=== PATIENT | male | born 1990 | race Caucasian/White ===

== ENCOUNTER 2019-12-19 19:35 | Inpatient (IN) | payer OTHER ==
[2019-12-19] MEDS ORDERED: SODIUM CHLORIDE 0.9% 2,000 ML IV ONE (19:55)
[2019-12-19 20:48] LABS: Basophils # (A) 0.1 k/uL (0-0.2); Basophils % (A) 2 %; Eosinophils # (A) 0.2 k/uL (0-0.7); Eosinophils % (A) 4 %; HCT 50.2 % (39.0-53.0); HGB 17.1 gm/dL (13.0-17.5); Lymphocytes % (A) 40 %; MCV 91.4 fL (80.0-100.0); Mean Platelet Volume 7.9; Monocytes # (A) 0.3 k/uL (0-1.0); Monocytes % (A) 6 %; Neutrophils # (A) 2.3 k/uL (1.3-7.7); Neutrophils % (A) 46 %; Platelet Count 164 k/uL (150-450); RDW 13.2 % (11.5-15.5)
--- NOTE | 2019-12-19 20:51 | ED ---
Psych HPI <ArslanjordonIzaiah B - Last Filed: 12/19/19 21:34> - General Source: patient Mode of arrival: wheelchair <Marissa Henning - Last Filed: 12/23/19 13:31> - General Chief Complaint: Psychiatric Symptoms Stated Complaint: Mental Health Time Seen by Provider: 12/19/19 19:35 - History of Present Illness Initial Comments: Patient is a 29 no male with past history of hypertension, alcohol abuse and depression presents to the emergency department with reported alcohol intoxication and suicidal thoughts. Girlfriend is at bedside. States the patient has stopped eating, showering and taking his medications. He has been significantly depressed and drinking every day. He has made multiple comments about harming himself which the patient does admit to. He was punching himself in the head on the way to the emergency department. Upon arrival here he states he has not attempted anything in order to harm himself however he does have plans to take all of his clonidine for walk out into traffic. Patient has a history of depression and sees a psychiatrist. Has been hospitalized multiple times for mental health. Patient admits to history of seizures however has not had any seizures recently secondary to alcohol withdrawal. Remainder of HPI is limited because the patient's significant intoxicated state (Marissa Henning) - Related Data Home Medications Medication Instructions Recorded Confirmed Albuterol Inhaler [Ventolin Hfa 2 puff INHALATION RT-Q4H PRN 12/19/19 12/19/19 Inhaler] Ipratropium/Albuter 20-100Mcg 1 puff INHALATION RT-BID PRN 12/19/19 12/19/19 [Combivent Respimat 20-100Mcg Inhaler] Multivitamins, Thera [Multivitamin 1 tab PO DAILY 12/19/19 12/19/19 (formulary)] Nicotine 21Mg/24Hr Patch [Habitrol] 1 patch TRANSDERM DAILY PRN 12/19/19 12/19/19 cloNIDine HCL [Catapres] 0.2 mg PO TID 12/19/19 12/19/19 Previous Rx's Medication Instructions Recorded diazePAM [Valium] 5 mg PO BID 2 Days tab 12/21/19 lamoTRIgine [LaMICtal] 25 mg PO BID tab 12/21/19 traZODone HCL [Desyrel] 50 mg PO HS PRN tab 12/21/19 Allergies Allergy/AdvReac Type Severity Reaction Status Date / Time No Known Allergies Allergy Verified 12/19/19 20:55 Review of Systems ROS Other: All systems not noted in ROS Statement are negative. <Izaiah Gottlieb - Last Filed: 12/19/19 21:34> ROS Other: All systems not noted in ROS Statement are negative. <Marissa Henning - Last Filed: 12/23/19 13:31> ROS Statement: Those systems with pertinent positive or pertinent negative responses have been documented in the HPI. Past Medical History Past Medical History: Asthma History of Any Multi-Drug Resistant Organisms: None Reported Past Surgical History: No Surgical Hx Reported, Hernia Repair Past Psychological History: Anxiety, Depression Smoking Status: Current every day smoker Past Alcohol Use History: Daily Past Drug Use History: Marijuana <Marissa Henning - Last Filed: 12/23/19 13:31> General Exam General appearance: alert, in no apparent distress, appears intoxicated Head exam: Present: atraumatic, normocephalic, normal inspection Eye exam: Present: normal appearance, PERRL, EOMI. Absent: scleral icterus, conjunctival injection, periorbital swelling ENT exam: Present: normal exam, mucous membranes moist Neck exam: Present: normal inspection. Absent: tenderness, meningismus, lymphadenopathy Respiratory exam: Present: normal lung sounds bilaterally. Absent: respiratory distress, wheezes, rales, rhonchi, stridor Cardiovascular Exam: Present: regular rate, normal rhythm, normal heart sounds. Absent: systolic murmur, diastolic murmur, rubs, gallop, clicks GI/Abdominal exam: Present: soft, normal bowel sounds. Absent: distended, tenderness, guarding, rebound, rigid Extremities exam: Present: normal inspection, full ROM, normal capillary refill. Absent: tenderness, pedal edema, joint swelling, calf tenderness Back exam: Present: normal inspection Neurological exam: Present: alert, oriented X3, CN II-XII intact Psychiatric exam: Present: normal affect, normal mood Skin exam: Present: warm, dry, intact, normal color. Absent: rash <Izaiah Gottlieb - Last Filed: 12/19/19 21:34> Limitations: no limitations General appearance: alert, appears intoxicated Head exam: Present: atraumatic, normocephalic Eye exam: Present: conjunctival injection ENT exam: Present: normal exam, mucous membranes moist Respiratory exam: Present: normal lung sounds bilaterally. Absent: respiratory distress, wheezes, rales, rhonchi, stridor Cardiovascular Exam: Present: normal rhythm, tachycardia, normal heart sounds. Absent: systolic murmur, diastolic murmur, rubs, gallop, clicks GI/Abdominal exam: Present: soft, normal bowel sounds. Absent: distended, tenderness, guarding, rebound, rigid Neurological exam: Present: altered Psychiatric exam: Present: depressed, suicidal ideation Skin exam: Present: warm, dry, intact, normal color. Absent: rash <Marissa Henning - Last Filed: 12/23/19 13:31> Course <Izaiah Gottlieb - Last Filed: 12/19/19 21:34> Vital Signs 12/19/19 19:37 Temperature 98.3 F Pulse Rate 111 H Respiratory 20 Rate Blood Pressure 134/96 O2 Sat by Pulse 96 Oximetry - Reevaluation(s) Reevaluation #1: 12/19/19 21:34 Medical records reviewed (Izaiah Gottlieb) - Consultations Consultation #1: Spoke with sound agreeable to admit patient (Izaiah Gottlieb) Medical Decision Making - Lab Data Result diagrams: 12/19/19 20:36 12/19/19 20:36 <Izaiah Gottlieb - Last Filed: 12/19/19 21:34> - Lab Data Result diagrams: 12/20/19 08:26 12/19/19 20:36 <Marissa Henning - Last Filed: 12/23/19 13:31> - Medical Decision Making 29 male for evaluation of psychiatric illness petition for psychiatric evaluation alcohol 387 significant alcohol toxicity, will admit for sobering and psychiatric evaluation (Izaiah Gottlieb) Upon arrival patient is placed into room 14. Breathalyzer demonstrates the patient's alcohol level is 306. Peripheral IV is established. Patient given a liter bolus of normal saline. Laboratory studies are conducted. Patient will be signed out to Dr. Gottlieb (Marissa Henning) - Lab Data Lab Results 12/19/19 12/19/19 12/19/19 Range/Units 20:36 20:36 20:36 WBC 5.0 (3.8-10.6) k/uL RBC 5.50 (4.30-5.90) m/uL Hgb 17.1 (13.0-17.5) gm/dL Hct 50.2 (39.0-53.0) % MCV 91.4 (80.0-100.0) fL MCH 31.0 (25.0-35.0) pg MCHC 34.0 (31.0-37.0) g/dL RDW 13.2 (11.5-15.5) % Plt Count 164 (150-450) k/uL Neutrophils % 46 % Lymphocytes % 40 % Monocytes % 6 % Eosinophils % 4 % Basophils % 2 % Neutrophils # 2.3 (1.3-7.7) k/uL Lymphocytes # 2.0 (1.0-4.8) k/uL Monocytes # 0.3 (0-1.0) k/uL Eosinophils # 0.2 (0-0.7) k/uL Basophils # 0.1 (0-0.2) k/uL Sodium 139 (137-145) mmol/L Potassium 5.0 (3.5-5.1) mmol/L Chloride 106 (98-107) mmol/L Carbon Dioxide 22 (22-30) mmol/L Anion Gap 11 mmol/L BUN 15 (9-20) mg/dL Creatinine 0.68 (0.66-1.25) mg/dL Est GFR (CKD-EPI)AfAm >90 (>60 ml/min/1.73 sqM) Est GFR (CKD-EPI)NonAf >90 (>60 ml/min/1.73 sqM) Glucose 109 H (74-99) mg/dL Calcium 9.3 (8.4-10.2) mg/dL Urine Color Light Yellow Urine Appearance Clear (Clear) Urine pH 5.5 (5.0-8.0) Ur Specific [place] 1.010 (1.001-1.035) Urine Protein Negative (Negative) Urine Glucose (UA) Negative (Negative) Urine Ketones Negative (Negative) Urine Blood Negative (Negative) Urine Nitrite Negative (Negative) Urine Bilirubin Negative (Negative) Urine Urobilinogen <2.0 (<2.0) mg/dL Ur Leukocyte Esterase Negative (Negative) Urine Opiates Screen Not Detected (NotDetected) Ur Oxycodone Screen Not Detected (NotDetected) Urine Methadone Screen Not Detected (NotDetected) Ur Propoxyphene Screen Not Detected (NotDetected) Ur Barbiturates Screen Not Detected (NotDetected) U Tricyclic Antidepress Not Detected (NotDetected) Ur Phencyclidine Scrn Not Detected (NotDetected) Ur Amphetamines Screen Not Detected (NotDetected) U Methamphetamines Scrn Not Detected (NotDetected) U Benzodiazepines Scrn Detected H (NotDetected) Urine Cocaine Screen Not Detected (NotDetected) U Marijuana (THC) Screen Detected H (NotDetected) Serum Alcohol 387 H* mg/dL 12/20/19 Range/Units 08:26 WBC 4.8 (3.8-10.6) k/uL RBC 5.00 (4.30-5.90) m/uL Hgb 15.3 (13.0-17.5) gm/dL Hct 46.2 (39.0-53.0) % MCV 92.4 (80.0-100.0) fL MCH 30.6 (25.0-35.0) pg MCHC 33.1 (31.0-37.0) g/dL RDW 13.4 (11.5-15.5) % Plt Count 241 (150-450) k/uL Neutrophils % 55 % Lymphocytes % 33 % Monocytes % 4 % Eosinophils % 5 % Basophils % 1 % Neutrophils # 2.6 (1.3-7.7) k/uL Lymphocytes # 1.6 (1.0-4.8) k/uL Monocytes # 0.2 (0-1.0) k/uL Eosinophils # 0.3 (0-0.7) k/uL Basophils # 0.1 (0-0.2) k/uL Sodium (137-145) mmol/L Potassium (3.5-5.1) mmol/L Chloride (98-107) mmol/L Carbon Dioxide (22-30) mmol/L Anion Gap mmol/L BUN (9-20) mg/dL Creatinine (0.66-1.25) mg/dL Est GFR (CKD-EPI)AfAm (>60 ml/min/1.73 sqM) Est GFR (CKD-EPI)NonAf (>60 ml/min/1.73 sqM) Glucose (74-99) mg/dL Calcium (8.4-10.2) mg/dL Urine Color Urine Appearance (Clear) Urine pH (5.0-8.0) Ur Specific [place] (1.001-1.035) Urine Protein (Negative) Urine Glucose (UA) (Negative) Urine Ketones (Negative) Urine Blood (Negative) Urine Nitrite (Negative) Urine Bilirubin (Negative) Urine Urobilinogen (<2.0) mg/dL Ur Leukocyte Esterase (Negative) Urine Opiates Screen (NotDetected) Ur Oxycodone Screen (NotDetected) Urine Methadone Screen (NotDetected) Ur Propoxyphene Screen (NotDetected) Ur Barbiturates Screen (NotDetected) U Tricyclic Antidepress (NotDetected) Ur Phencyclidine Scrn (NotDetected) Ur Amphetamines Screen (NotDetected) U Methamphetamines Scrn (NotDetected) U Benzodiazepines Scrn (NotDetected) Urine Cocaine Screen (NotDetected) U Marijuana (THC) Screen (NotDetected) Serum Alcohol mg/dL Disposition Is patient prescribed a controlled substance at d/c from ED?: No <Izaiah Gottlieb - Last Filed: 12/19/19 21:34> <Marissa Henning A - Last Filed: 12/23/19 13:31> Clinical Impression: Acute psychosis, Depression, Alcohol intoxication Disposition: ADMITTED IP TO THIS HOSP Condition: Fair
[2019-12-19 21:02] LABS: Sodium 139 mmol/L (137-145)
[2019-12-19 21:05] LABS: African American GFR (CKD) >90 (>60 ml/min/1.73 sqM); Anion Gap 11 mmol/L; Blood Urea Nitrogen 15 mg/dL (9-20); Calcium 9.3 mg/dL (8.4-10.2); Carbon Dioxide 22 mmol/L (22-30); Chloride 106 mmol/L (98-107); Glucose 109 mg/dL (74-99); Non-African American GFR(CKD) >90 (>60 ml/min/1.73 sqM)
[2019-12-19 21:22] LABS: Alcohol 387 mg/dL
[2019-12-19] MEDS ORDERED: THIAMINE 100 MG/ML 2 ML VIAL IM STA (21:32)
[2019-12-19] MEDS ORDERED: SODIUM CHLORIDE 0.9% 1,000 ML IV ONE (21:32)
[2019-12-19] MEDS ORDERED: LORazepam 2 MG/ML INJ IV PRN ×2 (21:32)
[2019-12-19 22:41] LABS: Appearance,Urine Clear (Clear); Bilirubin,Urine Negative (Negative); Blood,Urine Negative (Negative); Color,Urine Light Yellow; Glucose,Urine (UA) Negative (Negative); Ketones,Urine Negative (Negative); Leukocyte Esterase,Urine Negative (Negative); Nitrite,Urine Negative (Negative); PH, Urine 5.5 (5.0-8.0); Protein,Urine Negative (Negative); Urobilinogen,Urine <2.0 mg/dL (<2.0)
[2019-12-19 23:20] LABS: Amphetamine Screen,Urine Not Detected (NotDetected); Barbiturate Screen,Urine Not Detected (NotDetected); Benzodiazepines Screen,Urine Detected (NotDetected); Cocaine Screen,Urine Not Detected (NotDetected); Methadone Screen, Urine Not Detected (NotDetected); Opiate Screen,Urine Not Detected (NotDetected); Oxycodone Screen, Urine Not Detected (NotDetected); Phencyclidine Screen,Urine Not Detected (NotDetected); Tricyclic Antidepressant,Urine Not Detected (NotDetected); Urn Cannabinoid Scrn Detected (NotDetected)
[2019-12-20] MEDS: LORazepam 2 MG/ML INJ IV PRN ×9 (01:02→23:22)
--- NOTE | 2019-12-20 03:16 | P.HPIM ---
History of Present Illness H&P Date: 12/19/19 Chief Complaint: suicide ideation , alcohol intoxication 29-year-old male with hypertension Patient was brought in by family member due to acute alcohol intoxication, alcohol abuse, suicidal ideation. Patient girlfriend reported that he has not been taking care of himself not eating not drinking for hygiene status. He's been voicing suicidal ideation hoping to . He's been drinking so much he has history of alcohol abuse and alcohol withdrawal seizures. He has recently been [facility] but he checked himself out. Return to drinking Patient was sleeping at time of my interview he woke up and started crying he feels very depressed he complains about feeling very tired and intoxicated. He denies any chest pain fevers chills upper respiratory infection symptoms denies any shortness of breath. He reports that he had some vomiting episodes at home with some blood this is questionable though. Patient doesn't really making much sense during the interview and very unreliable historian Blood alcohol level was 387 otherwise blood work overall unremarkable Review of Systems ROS unobtainable: due to mental status Past Medical History Past Medical History: Asthma, Hypertension Additional Past Medical History / Comment(s): Alcohol withdrawals seizures History of Any Multi-Drug Resistant Organisms: None Reported Past Surgical History: No Surgical Hx Reported, Hernia Repair Past Anesthesia/Blood Transfusion Reactions: No Reported Reaction Past Psychological History: Anxiety, Depression Smoking Status: Current every day smoker Past Alcohol Use History: Daily, Heavy Additional Past Alcohol Use History / Comment(s): about a fifth and half of whiskey a day Past Drug Use History: Marijuana - Past Family History Family Family Medical History: Unable to Obtain Medications and Allergies Home Medications Medication Instructions Recorded Confirmed Type Albuterol Inhaler [Ventolin Hfa 2 puff INHALATION RT-Q4H PRN 12/19/19 12/19/19 History Inhaler] Ipratropium-Albuterol Nebulize 3 ml INHALATION RT-QID PRN 12/19/19 12/19/19 History [Duoneb 0.5 mg-3 mg/3 ml Soln] Ipratropium/Albuter 20-100Mcg 1 puff INHALATION RT-BID PRN 12/19/19 12/19/19 History [Combivent Respimat 20-100Mcg Inhaler] Multivitamins, Thera [Multivitamin 1 tab PO DAILY 12/19/19 12/19/19 History (formulary)] Nicotine 21Mg/24Hr Patch [Habitrol] 1 patch TRANSDERM DAILY PRN 12/19/19 12/19/19 History cloNIDine HCL [Catapres] 0.2 mg PO TID 12/19/19 12/19/19 History Allergies Allergy/AdvReac Type Severity Reaction Status Date / Time No Known Allergies Allergy Verified 12/19/19 20:55 Physical Exam Vitals: Vital Signs Temp Pulse Pulse Resp BP BP Pulse Ox 12/20/19 01:17 98.2 F 108 H 17 114/69 99 12/19/19 22:39 96.5 F L 99 18 138/94 99 12/19/19 19:37 98.3 F 111 H 20 134/96 96 Intake and Output 12/19/19 12/19/19 12/20/19 14:59 22:59 06:59 Intake Total 1000 Balance 1000 Intake: Amount of Fluid Infused ( 1000 ml) Other: Weight 104.326 kg Constitutional: Patient sleeping easily arousable, patient intoxicated and crying Eyes: Anicteric sclerae, moist conjunctiva, Pupils equal round reactive to light ENMT: NC/AT Oropharynx clear, no erythema, or exudates Neck: Supple, FROM, no masses, or JVD No carotid bruits No thyromegaly Lungs: Clear to auscultation Clear to percussion Normal respiratory effort, no accessory muscle use Cardiovascular: Heart regular in rate and rhythm, No murmurs, gallops, or rubs No peripheral edema Abdominal: Soft Nontender, no guarding, rebound or rigidity Abdomen moving with respiration Normoactive bowel sounds No hepatomegaly, No splenomegaly No palpable mass No abdominal wall hernia noted Skin: Normal temperature, tone, texture, turgor No induration No subcutaneous nodules No rash, lesions No ulcers Extremities: No digital cyanosis No clubbing Pedal pulses intact and symmetrical Radial pulses intact and symmetrical No calf tenderness Psychiatric: Patient intoxicated sleeping easily arousable oriented to person and place Depressed affect Poor judgement Neuro Muscles Strength 5/5 in all 4 extremities Sensation to light touch grossly present throughout Cranial nerves II-XII grossly intact No focal sensory deficits Lymphatics: no palpable cervical or supraclavicular , or inguinal lymph nodes Results CBC & Chem 7: 12/19/19 20:36 08/25/20 20:36 Labs: Abnormal Lab Results - Last 24 Hours (Table) 12/19/19 12/19/19 Range/Units 20:36 20:36 Glucose 109 H (74-99) mg/dL U Benzodiazepines Scrn Detected H (NotDetected) U Marijuana (THC) Screen Detected H (NotDetected) Serum Alcohol 387 H* mg/dL Thrombosis Risk Factor Assmnt - Choose All That Apply Any of the Below Risk Factors Present?: No Other Risk Factors: No Other congenital or acquired thrombophilia - If yes, enter type in comment: No Thrombosis Risk Factor Assessment Level: Very Low Risk Assessment and Plan Assessment: Acute severe alcohol intoxication with severe alcohol abuse Pending alcohol withdrawal syndrome History of alcohol withdrawal seizures Suicidal ideation and depression Plan IV fluid hydration Benzos per CIWA scale Thiamine Seizure precautions Bedside sitter Follow-up labs, monitor hemoglobin Psych eval PPI twice a day Hypertension Resume clonidine CODE STATUS: Full code DVT prophylaxis: Mechanical Discussed with: Patient, ER, RN Anticipated length of stay less than [address]: Pending clinical course A total of 75 minutes was spent on the care of this complex patient more than 50% of the time was spent in counseling and care coordination.
[2019-12-20] MEDS: THIAMINE 100 MG TAB PO SCH ×3 (04:11→16:55)
[2019-12-20] MEDS: IPRATROPIUM-ALBUTEROL 3 ML NEB INHALATION PRN ×4 (04:15→19:26)
[2019-12-20] MEDS: cloNIDine HCL 0.2 MG TAB PO SCH ×3 (08:31→21:38)
[2019-12-20] MEDS: PANTOPRAZOLE 40 MG TABLET PO SCH (08:31)
[2019-12-20] MEDS: HEPARIN SODIUM,PORCINE 5,000 UNIT/ML 1 ML VIAL SQ SCH ×2 (08:35→20:37)
[2019-12-20] MEDS: SODIUM CHLORIDE 0.9% 1,000 ML IV SCH ×2 (08:35→16:56)
[2019-12-20 09:03] LABS: Basophils # (A) 0.1 k/uL (0-0.2); Basophils % (A) 1 %; Eosinophils # (A) 0.3 k/uL (0-0.7); Eosinophils % (A) 5 %; HCT 46.2 % (39.0-53.0); HGB 15.3 gm/dL (13.0-17.5); Lymphocytes # (A) 1.6 k/uL (1.0-4.8); Lymphocytes % (A) 33 %; MCH 30.6 pg (25.0-35.0); MCHC 33.1 g/dL (31.0-37.0); MCV 92.4 fL (80.0-100.0); Mean Platelet Volume 6.8; Monocytes # (A) 0.2 k/uL (0-1.0); Monocytes % (A) 4 %; Neutrophils # (A) 2.6 k/uL (1.3-7.7); Neutrophils % (A) 55 %; Platelet Count 241 k/uL (150-450); RDW 13.4 % (11.5-15.5); WBC 4.8 k/uL (3.8-10.6)
[2019-12-20] MEDS: diazePAM 5 MG TAB PO SCH ×3 (12:27→21:38)
--- NOTE | 2019-12-20 13:18 | P.CN ---
Psychiatric Consult - . Consult date: 12/20/19 Consult:: 12/20/19 13:18 IDENTIFYING DATA: This patient is a 29-year-old male who currently lives with his brother or his and 2 daughters and is currently unemployed for the last 1 month. HISTORY OF PRESENT ILLNESS: The patient presented to the hospital with alcohol intoxication. Patient had made suicidal statements and was complaining of depression. According to patient's he had been being more depressed lately and stopped eating, showering and taking his medications. As per ER report patient admitted to be drinking daily and was also reported to be punching himself on the way to the emergency room. Patient also mentioned a plan about overdosing and walking into traffic. Patient's blood alcohol level was 387 on admission. Psychiatry was consulted for suicidal ideations. Patient was seen at the bedside with his sitter who was agreeable to speak to personal lines underwriter. Patient appeared to have poor hygiene and grooming and was attempting to cooperate with personal lines underwriter. Patient appeared to be depressed and his affect and states that he has been struggling with depression and suicidal thoughts however currently has no plan. He states that he recently moved locally from [facility] and states that the past 1.5 months now he has not been dealing with it well. He states that he's been trying to stop drinking alcohol however has been drinking approximately a fifth of whiskey a day. She states that he has been drinking heavily for approximately 5 years now however has been struggling with his alcohol use for 10 years. He denied any DUIs or any legal problems related to alcohol. He currently is complaining of withdrawal symptoms including paresthesias, nausea and also tremors. He states his sleep has been poor. He admits to anxiety. At this time patient denies any homical ideations, intent or plan. Patient denies any auditory, visual hallucinations and denies any paranoia or delusions. Patients admits to using alcohol as mentioned above, admits to smoking cigarettes daily and also to smoking marijuana daily. PAST PSYCHIATRIC HISTORY: Patient has a a history of alcohol use and depression. Patient states that he is currently on Adderall, Suboxone and Ativan along with Catapres he admits to one previous hospitalization 2 months ago at [facility]. Patient denies any psychiatric outpatient follow-up. He states that he attempted to overdose 2 months ago and was psychiatrically hospitalized in [place]. PAST MEDICAL HISTORY: Hypertension, seizure disorder, asthma. ALLERGIES: as per EMR. CHEMICAL DEPENDENCY HISTORY: as per HPI. FAMILY PSYCHIATRIC/SUBSTANCE USE HISTORY: He states that his aunt and his mother were depressed. SOCIAL HISTORY: Patient was born and raised in [place] and in [place] and recently moved locally. He states that he currently lives with his brother's and his 2 daughters. 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 He states that he completed up to 12th grade in school. He states that he did go to [facility] when he was 18 years old for drug-related charges.. MENTAL STATUS EXAM: General Appearance: Patient appears to be stated age is alert, directable, however is guarded/evasive at times. Patient appears to have poor hygiene and grooming wearing hospital gown with poor eye contact. Behavior: Patient is calmly lying in bed without any agitated behavior. Guarded/evasive. Speech: Patient's speech is fluent and nonpressured. Mood/Affect: Patient reports their mood is "depressed", affect is congruent Suicidality/Homicidality: Patient denies having homicidal ideation intent or plan. Patient admits to suicidal thoughts however nontender plan. Perceptions: Patient denies any visual hallucinations and denies any auditory hallucinations Though content/process: There is no evidence of any delusional thought content and thought process is linear and goal-directed. Memory and concentration: AOX3, grossly intact for the purposes of this session. Can spell "WORLD" backwards Judgment and insight: poor IMPRESSIONS: Major depressive disorder, recurrent, severe Alcohol use disorder, currently in withdrawal. Cannabis use disorder Nicotine dependence PLAN: -At this time patient DOES meet criteria for inpatient psychiatric admission once patient is medically cleared and has gone through alcohol withdrawal safely for at least 48 hours due to his high risk for withdrawal seizures and elevated blood alcohol level on admission. -Would recommend the following medication changes/additions: Patient is agreeable to start Lamictal 25 mg twice a day for mood stabilization/depression. Added trazodone 50 mg daily at bedtime when necessary for insomnia. -Continue 1:1 sitter for safety -Continue with CIWA protocol with Ativan when necessary. Can continue with diazepam 5 mg 3 times a day for alcohol withdrawal. -Cannot leave AMA at this time. Patient will need a petition and certification if attempting to leave AMA. -Will continue to follow along prn if needed -When medically stable, patient is eligible for transfer to a psych bed when available. -Please contact with any questions. 12/20/19 14:05
[2019-12-20 14:25] VITALS: BMI 32.1
--- NOTE | 2019-12-20 15:47 | P.PN ---
Subjective Progress Note Date: 12/20/19 Patient is awake and alert this morning. He was having symptoms of withdrawal and still requiring IV Ativan. He admitted that he drinks alcohol heavily but would like to quit. Objective - Vital Signs Vital signs: Vital Signs Temp 97.7 F 12/20/19 15:00 Pulse 74 12/20/19 15:00 Resp 16 12/20/19 15:00 BP 142/88 12/20/19 15:00 Pulse Ox 95 12/20/19 15:00 Intake & Output 12/19/19 12/20/19 12/20/19 18:59 06:59 18:59 Intake Total 1000 540 Balance 1000 540 Weight 104.326 kg 104.326 kg Intake: Amount of Fluid Infused ( 1000 ml) Oral 540 Other: # Voids 2 3 - Exam General: The patient is awake and alert, in no distress Eye: there is normal conjunctiva bilaterally. Neck: The neck is supple, there is no JVD. Cardiovascular: Normal S1-S2, no S3-S4, no murmurs. Respiratory: Lungs clear to auscultation bilaterally Gastrointestinal: Abdomen is soft, nontender Musculoskeletal: There is no pedal edema. Neurological:. Speech is normal. Skin: Skin is warm and dry - Labs CBC & Chem 7: 12/20/19 08:26 12/19/19 20:36 Labs: Abnormal Lab Results - Last 24 Hours (Table) 12/19/19 12/19/19 Range/Units 20:36 20:36 Glucose 109 H (74-99) mg/dL U Benzodiazepines Scrn Detected H (NotDetected) U Marijuana (THC) Screen Detected H (NotDetected) Serum Alcohol 387 H* mg/dL Assessment and Plan Assessment: Acute severe alcohol intoxication with severe alcohol abuse Pending alcohol withdrawal syndrome History of alcohol withdrawal seizures Suicidal ideation and depression Plan IV fluid hydration Benzos per CIWA scale, and scheduled Valium 5 mg 3 times a day Thiamine Seizure precautions Bedside sitter Follow-up labs, monitor hemoglobin Psych eval appreciated. Plan to discharge to inpatient psych tomorrow PPI twice a day Hypertension Resume clonidine
[2019-12-20] MEDS: NICOTINE 21MG/24HR PATCH TRANSDERM PRN (18:05)
[2019-12-20] MEDS: lamoTRIgine 25 MG TAB PO SCH (21:38)
[2019-12-21] MEDS: LORazepam 2 MG/ML INJ IV PRN ×8 (01:17→23:24)
[2019-12-21] MEDS: IPRATROPIUM-ALBUTEROL 3 ML NEB INHALATION PRN ×3 (02:15→21:17)
[2019-12-21] MEDS: SODIUM CHLORIDE 0.9% 1,000 ML IV SCH ×3 (02:32→19:29)
[2019-12-21] MEDS: HEPARIN SODIUM,PORCINE 5,000 UNIT/ML 1 ML VIAL SQ SCH ×2 (08:55→19:37)
[2019-12-21] MEDS: diazePAM 5 MG TAB PO SCH ×3 (09:46→19:38)
[2019-12-21] MEDS: lamoTRIgine 25 MG TAB PO SCH ×2 (09:46→19:39)
[2019-12-21] MEDS: cloNIDine HCL 0.2 MG TAB PO SCH ×3 (09:46→19:38)
[2019-12-21] MEDS: PANTOPRAZOLE 40 MG TABLET PO SCH (09:46)
[2019-12-21] MEDS: THIAMINE 100 MG TAB PO SCH ×2 (09:46→15:55)
--- NOTE | 2019-12-21 09:49 | P.DS ---
Providers Date of admission: 12/20/19 14:57 Expected date of discharge: 12/21/19 Attending physician: Pablo Smart MD Consults: 12/19/19 21:32 Consult Physician Routine Consulting Provider: Sy Nichols Consult Reason/Comments: SI Do you want consulting provider notified?: Yes Primary care physician: Stated None Hospital Course: This is a 29-year-old male who presented to the hospital with alcohol intoxication and suicidal ideation. Patient was evaluated in the ER and admitted to the hospital for medical clearance. Patient was treated with aggressive IV fluid hydration and CIWA protocol as needed. He was started on Valium scheduled to prevent withdrawal. Patient was seen and evaluated by psychiatry for his underlying depression and plan to transfer to the psych unit for further management. Continue Valium 5 mg twice daily for a couple more days. Multivitamins. Counseled extensively to quit alcohol. Management per psychiatry otherwise. Patient will be transferred in a stable condition. Below is the least of his medical problems. For further details about this hospitalization please refer to the electronic chart. Acute severe alcohol intoxication with severe alcohol abuse Pending alcohol withdrawal syndrome History of alcohol withdrawal seizures Suicidal ideation and depression Patient Condition at Discharge: Fair Plan - Discharge Summary Discharge Rx Participant: Yes New Discharge Prescriptions: New traZODone HCL [Desyrel] 50 mg PO HS PRN tab PRN Reason: Insomnia lamoTRIgine [LaMICtal] 25 mg PO BID tab diazePAM [Valium] 5 mg PO BID 2 Days tab Continue Nicotine 21Mg/24Hr Patch [Habitrol] 1 patch TRANSDERM DAILY PRN PRN Reason: SMOKING CESSATION Multivitamins, Thera [Multivitamin (formulary)] 1 tab PO DAILY Albuterol Inhaler [Ventolin Hfa Inhaler] 2 puff INHALATION RT-Q4H PRN PRN Reason: Shortness Of Breath cloNIDine HCL [Catapres] 0.2 mg PO TID Ipratropium/Albuter 20-100Mcg [Combivent Respimat 20-100Mcg Inhaler] 1 puff INHALATION RT-BID PRN PRN Reason: Shortness Of Breath Discontinued Ipratropium-Albuterol Nebulize [Duoneb 0.5 mg-3 mg/3 ml Soln] 3 ml INHALATION RT-QID PRN PRN Reason: Shortness Of Breath Discharge Medication List Albuterol Inhaler [Ventolin Hfa Inhaler] 2 puff INHALATION RT-Q4H PRN 12/19/19 [History] Ipratropium/Albuter 20-100Mcg [Combivent Respimat 20-100Mcg Inhaler] 1 puff INH ALATION RT-BID PRN 12/19/19 [History] Multivitamins, Thera [Multivitamin (formulary)] 1 tab PO DAILY 12/19/19 [History] Nicotine 21Mg/24Hr Patch [Habitrol] 1 patch TRANSDERM DAILY PRN 12/19/19 [Histor y] cloNIDine HCL [Catapres] 0.2 mg PO TID 12/19/19 [History] diazePAM [Valium] 5 mg PO BID 2 Days tab 12/21/19 [Rx] lamoTRIgine [LaMICtal] 25 mg PO BID tab 12/21/19 [Rx] traZODone HCL [Desyrel] 50 mg PO HS PRN tab 12/21/19 [Rx] Follow up Appointment(s)/Referral(s): None,Stated [Primary Care Provider] - 1-2 days Discharge Disposition: TRANSFER TO PSYCH HOSP/UNIT
[2019-12-21] MEDS: NICOTINE 21MG/24HR PATCH TRANSDERM PRN (19:39)
[2019-12-22] MEDS: LORazepam 2 MG/ML INJ IV PRN ×2 (02:21→05:26)
[2019-12-22] MEDS: SODIUM CHLORIDE 0.9% 1,000 ML IV SCH ×4 (02:59→22:36)
[2019-12-22] MEDS: IPRATROPIUM-ALBUTEROL 3 ML NEB INHALATION PRN ×3 (04:20→20:08)
[2019-12-22] MEDS: PANTOPRAZOLE 40 MG TABLET PO SCH (09:06)
[2019-12-22] MEDS: THIAMINE 100 MG TAB PO SCH ×2 (09:06→16:01)
[2019-12-22] MEDS: cloNIDine HCL 0.2 MG TAB PO SCH ×3 (09:06→22:37)
[2019-12-22] MEDS: diazePAM 5 MG TAB PO SCH ×3 (09:07→22:37)
[2019-12-22] MEDS: HEPARIN SODIUM,PORCINE 5,000 UNIT/ML 1 ML VIAL SQ SCH ×2 (09:07→20:14)
[2019-12-22] MEDS: lamoTRIgine 25 MG TAB PO SCH ×2 (09:07→20:15)
[2019-12-22] MEDS ORDERED: diazePAM 5 MG TAB PO STA (09:35)
[2019-12-22] MEDS: LORazepam 1 MG TAB PO PRN ×4 (12:07→20:15)
--- NOTE | 2019-12-22 17:38 | P.PN ---
Subjective Progress Note Date: 12/22/19 Patient was not transferred to the psych floor yesterday as there was no available room. We are having issues with disposition as apparently patient cannot remain in our psych hospital and other psych facilities and [facility] did not accept him so far. We are awaiting for psychiatry evaluation for daryn crouch for possibly discharge home. Patient himself is doing fairly well. He denies any suicidal thoughts at this time. Objective - Vital Signs Vital signs: Vital Signs Temp 97.8 F 12/22/19 14:45 Pulse 58 L 12/22/19 14:45 Resp 18 12/22/19 14:45 BP 132/80 12/22/19 14:45 Pulse Ox 100 12/22/19 14:45 Intake & Output 12/21/19 12/22/19 12/22/19 18:59 06:59 18:59 Weight 104.326 kg Other: Voiding Method Toilet # Voids 1 2 2 - Exam General: The patient is awake and alert, in no distress Eye: there is normal conjunctiva bilaterally. Neck: The neck is supple, there is no JVD. Cardiovascular: Normal S1-S2, no S3-S4, no murmurs. Respiratory: Lungs clear to auscultation bilaterally Gastrointestinal: Abdomen is soft, nontender Musculoskeletal: There is no pedal edema. Neurological:. Speech is normal. Skin: Skin is warm and dry - Labs CBC & Chem 7: 12/20/19 08:26 12/19/19 20:36 Assessment and Plan Assessment: Acute severe alcohol intoxication with severe alcohol abuse Pending alcohol withdrawal syndrome History of alcohol withdrawal seizures Suicidal ideation and depression Plan IV fluid hydration Benzos per CIWA scale, and scheduled Valium 10 mg 3 times a day Thiamine Seizure precautions Bedside sitter Follow-up labs, monitor hemoglobin Psych eval appreciated. PPI twice a day Hypertension Resume clonidine Awaiting reevaluation by psychiatry. Possibly discharge home tomorrow.
[2019-12-22] MEDS: NICOTINE 21MG/24HR PATCH TRANSDERM PRN (18:44)
[2019-12-23] MEDS: LORazepam 1 MG TAB PO PRN ×8 (01:24→23:57)
[2019-12-23] MEDS: SODIUM CHLORIDE 0.9% 1,000 ML IV SCH ×3 (06:32→13:12)
[2019-12-23] MEDS: diazePAM 5 MG TAB PO SCH ×3 (07:45→21:15)
[2019-12-23] MEDS: PANTOPRAZOLE 40 MG TABLET PO SCH (07:46)
[2019-12-23] MEDS: lamoTRIgine 25 MG TAB PO SCH ×2 (07:46→21:59)
[2019-12-23] MEDS: HEPARIN SODIUM,PORCINE 5,000 UNIT/ML 1 ML VIAL SQ SCH ×2 (07:46→21:14)
[2019-12-23] MEDS: THIAMINE 100 MG TAB PO SCH ×2 (07:46→15:59)
[2019-12-23] MEDS: cloNIDine HCL 0.2 MG TAB PO SCH ×3 (07:46→21:15)
[2019-12-23] MEDS: IPRATROPIUM-ALBUTEROL 3 ML NEB INHALATION PRN ×3 (07:59→15:50)
--- NOTE | 2019-12-23 16:20 | P.PN ---
Subjective no acute events overnight Objective - Vital Signs Vital signs: Vital Signs Temp 97.9 F 12/23/19 15:00 Pulse 72 12/23/19 15:59 Resp 20 12/23/19 15:00 BP 137/80 12/23/19 15:00 Pulse Ox 99 12/23/19 15:00 Intake & Output 12/22/19 12/23/19 12/23/19 18:59 06:59 18:59 Intake Total 520 Balance 520 Weight 104.326 kg Intake: Intake, IV Titration 400 Amount Sodium Chloride 0.9% 1, 400 000 ml @ 130 mls/hr IV . [id number] [facility] Rx#:[id number] Oral 120 Other: Voiding Method Toilet # Voids 2 1 3 - Exam General: The patient is awake and alert, in no distress Eye: there is normal conjunctiva bilaterally. Neck: The neck is supple, there is no JVD. Cardiovascular: Normal S1-S2, no S3-S4, no murmurs. Respiratory: Lungs clear to auscultation bilaterally Gastrointestinal: Abdomen is soft, nontender Musculoskeletal: There is no pedal edema. Neurological:. Speech is normal. Skin: Skin is warm and dry - Labs CBC & Chem 7: 12/20/19 08:26 12/19/19 20:36 Assessment and Plan Assessment: Acute severe alcohol intoxication with severe alcohol abuse Pending alcohol withdrawal syndrome History of alcohol withdrawal seizures Suicidal ideation and depression Plan IV fluid hydration Benzos per CIWA scale, and scheduled Valium 10 mg 3 times a day Thiamine Seizure precautions Bedside sitter Follow-up labs, monitor hemoglobin Psych eval appreciated. PPI twice a day Hypertension Resume clonidine Awaiting reevaluation by psychiatry.
[2019-12-23] MEDS: NICOTINE 21MG/24HR PATCH TRANSDERM PRN (17:26)
--- NOTE | 2019-12-23 18:39 | P.PN ---
Progress Note - Text Progress Note Date: 12/23/19 Reason for consultation: Follow psychiatric consultation The patient was initially evaluated on 12/19 and recommendation was to admit to inpatient unit considering that he reported suicidal statement to his girlfriend prior to admission and he clearly indicated plan to run in front of traffic or overdose on drugs. Patient was evaluated today, he continued to present with severe shakiness even he denies withdrawal symptoms, but he was very nervous, and evasive in his answers. When asked about current SI, he denies but he was not able to address any safety plan or crisis intervention. Clearly has no support at home and he is not connected with outpatient service. The patient clearly was very agitated, emotional and crying. The patient was not cooperative with assessment and he was repeating Please let me go, and he could not come with any discussion about his aftercare plan or support at his home. Reportedly the patient was repeating suicidal statement to his girlfriend on daily basis prior to his hospitalization. The patient has long history of heavy alcohol use disorder for more than 5 years and he was not able to control his drinking habit and he became suicidal multiple times in the past with previous suicidal attempt. He has previous psychiatric hospitalization after suicidal attempt by overdose 2 months ago. The patient was not fully cooperative with psychiatric assessment but clearly presented very anxious, and irritated. No report of manic or psychotic symptoms. Patient was not cooperative with assessment and not clear if he is fully oriented to time or not. Suicidal Risk Assessment: Based on the history patient has very limited social support and showed very clear suicidal plan prior to this hospitalization, has current severe alcohol use disorder, severe agitation and presents guarded, and very superficial to discuss his symptoms. The patient has past suicidal attempt and psychiatric hospitalization within the past 12 months and continued to drink alcohol, not able to stop which is a major precipitating factor for his previous suicidal behavior. No protective factors were identified besides vague answer from the patient my girlfriend. He was not able to address any coping skills to suicidal thoughts, or plan to control his alcohol drinking habit in the future not to repeat his previous behavior which precipitated him to suicidal attempt 2 months ago and having clear plan prior to this hospitalization. No other preventive factors were identified and he did not answer questions about having access to lethal weapons. The patient current suicidal risk is high, and he lacks any social support, connection with outpatient psychiatric service, and at this time could not verify if he will have access to lethal weapon after discharge or not. Mental status examination; Appearance: The patient appears stated age, partially disheveled, average body built, no specific features. Gait/posture:Normal gait, Normal arm swinging: No abnormal movements. Attitude and behavior: not engaged, not cooperative, poor eye contact. Motor activity: Increased psychomotor activity Speech: loud, pressured. Mood: irritable, stressed. Affect:Increased intensity Thought form: perseverant, fixated on discharge. Thought content: Non-delusional, Denies suicidal thoughts but not engaged and appears stressed, denies homicidal thoughts, denies intentions or plans. Perception: denies any auditory or visual hallucinations Attention: Impaired Orientation: Patient was not cooperative with evaluation so not able to assess. Insight: Patient has limited insight about his psychiatric disorder. Judgment: Patient has limited judgment about his psychiatric treatment. Assessment: Major depressive disorder, recurrent, severe Alcohol use disorder, currently in withdrawal. Cannabis use disorder Nicotine dependence Recommendations: At this time, the patient will be high risk to hurt himself if he is released without further psychiatric treatment and stabilization at inpatient level of care. I agree with the previous psychiatric consultation that patient needs inpatient level of care for monitoring and further stabilization of his psychiatric condition. Continue 1:1 monitoring for safety and risk of elopement Medication management: Lamictal 25 mg twice a day for mood stabilization/depression. Trazodone 50 mg daily at bedtime when necessary for insomnia. Discussed the treatment plan with the requesting physician/service. Thank you for permitting me to assist in this patient's treatment. Please call psychiatry department if you have any question or need further help with this case.
[2019-12-23] MEDS: MELATONIN 5 MG TABLET PO SCH (21:15)
[2019-12-24] MEDS: LORazepam 1 MG TAB PO PRN ×5 (02:47→22:02)
[2019-12-24] MEDS: IPRATROPIUM-ALBUTEROL 3 ML NEB INHALATION PRN ×3 (03:29→19:24)
[2019-12-24] MEDS: diazePAM 5 MG TAB PO SCH ×3 (07:11→20:48)
[2019-12-24] MEDS: PANTOPRAZOLE 40 MG TABLET PO SCH (07:11)
[2019-12-24] MEDS: HEPARIN SODIUM,PORCINE 5,000 UNIT/ML 1 ML VIAL SQ SCH ×2 (07:11→20:48)
[2019-12-24] MEDS: THIAMINE 100 MG TAB PO SCH ×2 (07:11→15:49)
[2019-12-24] MEDS: cloNIDine HCL 0.2 MG TAB PO SCH ×3 (07:11→20:49)
[2019-12-24] MEDS: lamoTRIgine 25 MG TAB PO SCH ×2 (07:18→20:50)
--- NOTE | 2019-12-24 14:10 | P.PN ---
Subjective Patient was resting this morning Objective - Vital Signs Vital signs: Vital Signs Temp 97.5 F L 12/24/19 07:00 Pulse 60 12/24/19 07:00 Resp 12 12/24/19 07:00 BP 162/90 12/24/19 07:00 Pulse Ox 99 12/24/19 00:00 Intake & Output 12/23/19 12/24/19 12/24/19 18:59 06:59 18:59 Other: Voiding Method Toilet # Voids 3 2 - Exam General: The patient is awake and alert, in no distress Eye: there is normal conjunctiva bilaterally. Neck: The neck is supple, there is no JVD. Cardiovascular: Normal S1-S2, no S3-S4, no murmurs. Respiratory: Lungs clear to auscultation bilaterally Gastrointestinal: Abdomen is soft, nontender Musculoskeletal: There is no pedal edema. Neurological:. Speech is normal. Skin: Skin is warm and dry - Labs CBC & Chem 7: 12/20/19 08:26 12/19/19 20:36 Assessment and Plan Assessment: Acute severe alcohol intoxication with severe alcohol abuse Pending alcohol withdrawal syndrome History of alcohol withdrawal seizures Suicidal ideation and depression Plan IV fluid hydration Benzos per CIWA scale, and scheduled Valium 10 mg 3 times a day Thiamine Seizure precautions Bedside sitter Follow-up labs, monitor hemoglobin Psych eval appreciated. PPI twice a day Hypertension Resume clonidine Patient was not cleared by psychiatry for discharge. Awaiting reevaluation tomorrow for inpatient psych We'll discuss with social work in the morning
[2019-12-24] MEDS: ONDANSETRON 4 MG/2 ML VIAL IVP PRN ×2 (15:21→22:01)
[2019-12-24] MEDS: ACETAMINOPHEN TAB 325 MG TAB PO PRN (15:49)
[2019-12-24] MEDS: NICOTINE 21MG/24HR PATCH TRANSDERM PRN (15:54)
[2019-12-24] MEDS ORDERED: diphenhydrAMINE 25 MG CAP PO STA (18:19)
[2019-12-24] MEDS: MELATONIN 5 MG TABLET PO SCH (20:48)
[2019-12-24] MEDS: traZODone HCL 50 MG TAB PO PRN (20:49)
[2019-12-25] MEDS: LORazepam 1 MG TAB PO PRN ×6 (02:18→23:17)
[2019-12-25] MEDS: lamoTRIgine 25 MG TAB PO SCH ×2 (07:42→20:11)
[2019-12-25] MEDS: diazePAM 5 MG TAB PO SCH ×3 (07:42→20:11)
[2019-12-25] MEDS: HEPARIN SODIUM,PORCINE 5,000 UNIT/ML 1 ML VIAL SQ SCH ×2 (07:42→20:10)
[2019-12-25] MEDS: THIAMINE 100 MG TAB PO SCH ×2 (07:42→16:10)
[2019-12-25] MEDS: cloNIDine HCL 0.2 MG TAB PO SCH ×3 (07:42→20:10)
[2019-12-25] MEDS: PANTOPRAZOLE 40 MG TABLET PO SCH (07:42)
[2019-12-25] MEDS: IPRATROPIUM-ALBUTEROL 3 ML NEB INHALATION PRN ×3 (08:10→20:18)
--- NOTE | 2019-12-25 15:14 | P.PN ---
Progress Note - Text Progress Note Date: 12/25/19 Interval History: Patient was seen today for psychiatric follow-up regarding patient depression and suicidal thoughts. Patient was waiting at the door and urgently wanted to speak with internal communications writer. Patient was preoccupied with discharge and minimizing and superficial about his drinking and his depression. Patient was guarded/evasive and continues to demonstrate poor coping skills and impulse control. He showed pictures of his kids and his to internal communications writer and states that "if I don't leave year than who is given a provide for them". Patient was not able to reflect back on the circumstances that brought him into the hospital and his depression and alcohol abuse prior and was minimizing his suicidal thoughts. He continues to have poor insight and judgment. He states that he has been sleeping better at night. He continues to admit to anxiety and has been manipulative with the [place] questions according to nurse and has been asking for several by mouth Ativan doses. At this time patient denies any suicidal or homical ideations, intent or plan. Patient denies any auditory, visual hallucinations and denies any paranoia or delusions. Patient denies any side effects from the medications and has been compliant with meds. Mental Status Exam: General Appearance: Patient appears to be stated age is alert, guarded/evasive, superficially cooperative. Patient appears to have improving hygiene and grooming wearing hospital gown with improving eye contact. Behavior: Patient is calmly lying in bed without any agitated behavior. Guarded/evasive. Superficial. Speech: Patient's speech is fluent and nonpressured. Mood/Affect: Patient reports their mood is "better", affect is incongruent and not appropriate. Suicidality/Homicidality: Patient denies having homicidal ideation intent or plan. Currently denying any suicidal thoughts. Perceptions: Patient denies any visual hallucinations and denies any auditory hallucinations Though content/process: Patient is preoccupied with discharge and minimizing/superficial about his depression and his drinking and inability to care for himself. Manipulative at times. Memory and concentration: AOX3, grossly intact for the purposes of this session. Judgment and insight: poor/impulsive Assessment Major depressive disorder, recurrent, severe Alcohol use disorder, currently in withdrawal. Cannabis use disorder Nicotine dependence Plan: -At this time patient DOES meet criteria for inpatient psychiatric admission due to patient's history of depression and poor impulse control along with inability to care for himself and history of self-harm/suicidal thoughts. -Would recommend the following medication changes/additions: Increased Lamictal 50 mg twice a day for mood stabilization/depression. Continue with trazodone 50 mg daily at bedtime when necessary for insomnia. Continue with melatonin 5 mg daily at bedtime for insomnia. Added Zoloft 50 mg daily for mood/anxiety. Discontinued CIWA at this time as patient should be out of alcohol withdrawal window. Will decrease Valium to 5 mg 3 times a day and continue to monitor and wean off benzodiazepines completely as patient has significant history of alcohol abuse. Ativan 1 mg 3 times a day by mouth when necessary for anxiety. -Continue 1:1 sitter for safety -Poolroom/Poolhall Manager completed clinical certificate today and social media strategist will be continuing to look for psychiatric placement for patient. -Please contact with any questions.
[2019-12-25] MEDS: SERTRALINE 50 MG TAB PO SCH (16:10)
[2019-12-25] MEDS: NICOTINE 21MG/24HR PATCH TRANSDERM PRN (16:18)
--- NOTE | 2019-12-25 17:02 | P.PN ---
Subjective Progress Note Date: 12/25/19 Patient is doing well today. He is anxious and would like to be discharged home. He denies any suicidal thoughts or ideation. Objective - Vital Signs Vital signs: Vital Signs Temp 98.3 F 12/25/19 15:00 Pulse 98 12/25/19 15:00 Resp 18 12/25/19 15:00 BP 141/90 12/25/19 15:00 Pulse Ox 96 12/25/19 15:00 Intake & Output 12/24/19 12/25/19 12/25/19 18:59 06:59 18:59 Weight 104.326 kg Other: Voiding Method Toilet # Voids 3 2 3 # Bowel Movements 1 - Exam General: The patient is awake and alert, in no distress Eye: there is normal conjunctiva bilaterally. Neck: The neck is supple, there is no JVD. Cardiovascular: Normal S1-S2, no S3-S4, no murmurs. Respiratory: Lungs clear to auscultation bilaterally Gastrointestinal: Abdomen is soft, nontender Musculoskeletal: There is no pedal edema. Neurological:. Speech is normal. Skin: Skin is warm and dry - Labs CBC & Chem 7: 12/20/19 08:26 12/19/19 20:36 Assessment and Plan Assessment: This is a 29-year-old male who presented to the emergency room with alcohol intoxication was admitted to the hospital for further management of his medical problems noted below. Acute severe alcohol intoxication with severe alcohol abuse Alcohol withdrawal syndrome History of alcohol withdrawal seizures Suicidal ideation and depression on presentation Plan: Patient was admitted to the hospital and treated with aggressive IV fluid hydration and multivitamin. CIWA protocol as needed. He was seen and evaluated by psychiatry. He was not acute for discharge home. He has been waiting in the hospital for several days awaiting placement to a psych facility. Hypertension Resume clonidine Discussed patient care with the psychiatrist over the phone. Patient was not cleared to be discharged home. Currently working on finding an admitting facility in [place]. Benzodiazepines adjusted per psychiatry
[2019-12-25] MEDS: MELATONIN 5 MG TABLET PO SCH (20:10)
[2019-12-25 20:20] VITALS: RESP 16
[2019-12-25] MEDS: ACETAMINOPHEN TAB 325 MG TAB PO PRN (21:29)
[2019-12-25] MEDS ORDERED: ONDANSETRON 4 MG TAB PO PRN (22:36)
[2019-12-25] MEDS: traZODone HCL 50 MG TAB PO PRN (23:17)
[2019-12-26] MEDS: LORazepam 1 MG TAB PO PRN ×2 (06:16→13:25)
[2019-12-26] MEDS: diazePAM 5 MG TAB PO SCH (08:14)
[2019-12-26] MEDS: HEPARIN SODIUM,PORCINE 5,000 UNIT/ML 1 ML VIAL SQ SCH (08:14)
[2019-12-26] MEDS: cloNIDine HCL 0.2 MG TAB PO SCH (08:14)
[2019-12-26] MEDS: PANTOPRAZOLE 40 MG TABLET PO SCH (08:14)
[2019-12-26] MEDS: THIAMINE 100 MG TAB PO SCH (08:14)
[2019-12-26] MEDS: SERTRALINE 50 MG TAB PO SCH (08:14)
[2019-12-26] MEDS: lamoTRIgine 25 MG TAB PO SCH (08:14)
[2019-12-26] MEDS: IPRATROPIUM-ALBUTEROL 3 ML NEB INHALATION PRN ×2 (08:45→11:47)
[2019-12-26 09:15] VITALS: TEMP 97.8
[2019-12-26 09:17] VITALS: BP 159/96
[2019-12-26 11:50] VITALS: PULSE 82
--- NOTE | 2019-12-26 13:31 | P.PN ---
Progress Note - Text Progress Note Date: 12/26/19 Interval History: Patient was seen today for psychiatric follow-up regarding patient depression and suicidal thoughts. Patient was directable and agreeable to speak to field underwriter today at the bedside. Patient spoke more about his family and missing them. He states that he wants to live for his children and his and also for his sobriety. He states that he is improving with regards to his mood and anxiety and believes that the Zoloft is helping him. Patient was agreeable to have the Zoloft increased to 100 mg. She currently denies any withdrawal symptoms. He spoke about his sobriety and being okay with going to a partial hospitalization program closer towards home. He states that he was able to sleep better last night. He appears to be more future oriented today with improved impulse control. He spoke about wanting to move back to the city with his family as he is finding it hard to get a job in the area. Patient has been taking his medications as prescribed and denied any side effects. At this time patient denies any suicidal or homical ideations, intent or plan. Patient denies any auditory, visual hallucinations and denies any paranoia or delusions. Patient denies any side effects from the medications and has been compliant with meds. Mental Status Exam: General Appearance: Patient appears to be stated age is alert, directable and more cooperative today. Patient appears to have improving hygiene and grooming wearing hospital gown with improving eye contact. Behavior: Patient is calmly lying in bed without any agitated behavior. More cooperative today. Speech: Patient's speech is fluent and nonpressured. Mood/Affect: Patient reports their mood is "good", affect is congruent and appropriate Suicidality/Homicidality: Patient denies having homicidal ideation intent or plan. Currently denying any suicidal thoughts intent or plan. Perceptions: Patient denies any visual hallucinations and denies any auditory hallucinations Though content/process: Patient appears to be more future oriented today. More logical and goal oriented. Spoke about his goals and treatment plan. Memory and concentration: AOX3, grossly intact for the purposes of this session. Judgment and insight: Improved Assessment Major depressive disorder, recurrent, severe Alcohol use disorder, currently in withdrawal. Cannabis use disorder Nicotine dependence Plan: -At this time patient would qualify for partial hospitalization program to continue with medication management and close observation of patient's condition. Patient is currently declining wanting to go to inpatient rehab and would prefer to do outpatient substance use programs as he is trying to look for a job. -Patient appears to be more future oriented today and more focused on his sobriety and has improved impulse control. -Would recommend the following medication changes/additions: Continue with Lamic sedrick 50 mg twice a day for mood stabilization/depression. Continue with trazodone 50 mg daily at bedtime when necessary for insomnia. Continue with melatonin 5 mg daily at bedtime for insomnia. Increased Zoloft 100 mg daily for mood/anxiety. Can continue with Valium to 5 mg 3 times a day and continue to monitor and wean off benzodiazepines, this can be done as an outpatient. Also, field underwriter discussed possibility of naltrexone versus acamprosate for alcohol cravings however patient was ambivalent about this and will speak with the psychiatrist at the partial hospitalization program once his LFTs improved. -Can discontinue one-to-one sitter at this time however if patient becomes agitated than the one-to-one sitter can be resumed once again. -Dub Room Engineer spoke with social organization professor Willis about patient's case and treatment planning. [facility] is willing to approve and cover patient in either inpatient rehab or partial hospitalization program and at this time it appears that patient is only willing to do partial hospitalization program. machine farmworker is agreeable to call patient's to ensure that guns and weapons are secured and removed from the house and to answer any questions and concerns and see if she is agreeable to have patient return back home with her and the family and to observe patient's behavior closely. -Psychiatry will sign off at this point. Please contact with any questions.
--- NOTE | 2019-12-26 14:16 | P.DS ---
Providers Date of admission: 12/20/19 14:57 Expected date of discharge: 12/26/19 Attending physician: Pablo Smart MD Consults: 12/19/19 21:32 Consult Physician Routine Consulting Provider: Sy Nichols Consult Reason/Comments: SI Do you want consulting provider notified?: Yes 12/22/19 16:31 Consult Physician Routine Consulting Provider: Rigo Foster Consult Reason/Comments: reassess for suicidal ideation/risk Do you want consulting provider notified?: Already Contacted Primary care physician: Stated None Hospital Course: This is a 29-year-old male who presented to the emergency room with alcohol intoxication was admitted to the hospital for further management of his medical problems noted below. Acute severe alcohol intoxication with severe alcohol abuse Alcohol withdrawal syndrome History of alcohol withdrawal seizures Suicidal ideation and depression on presentation Plan: Patient was admitted to the hospital and treated with aggressive IV fluid hydration and multivitamin. CIWA protocol as needed. He was seen and evaluated by psychiatry. He remained in the hospital for several days and was not cleared by cardiology for discharge. The plan was to transfer him to an inpatient psych unit. composition worker having difficulty finding a place as the patient was refused from [place] and was unable to be admitted to our unit. Psychiatry eventually cleared the patient to be discharged home with a supervised setting and plan for outpatient therapy. composition worker was involved. His would became month from the hospital. composition worker spoke to his that removed all the workup and from the house. Medication regimen adjusted by cardiology. Hypertension Resume clonidine Patient will be discharged home in a stable condition. For further details about this hospitalization please refer to the electronic chart. Patient Condition at Discharge: Fair Plan - Discharge Summary Discharge Rx Participant: Yes New Discharge Prescriptions: New traZODone HCL [Desyrel] 50 mg PO HS PRN tab PRN Reason: Insomnia lamoTRIgine [LaMICtal] 25 mg PO BID tab diazePAM [Valium] 5 mg PO BID 2 Days tab Sertraline [Zoloft] 100 mg PO DAILY #30 tab Continue Nicotine 21Mg/24Hr Patch [Habitrol] 1 patch TRANSDERM DAILY PRN PRN Reason: SMOKING CESSATION Multivitamins, Thera [Multivitamin (formulary)] 1 tab PO DAILY Albuterol Inhaler [Ventolin Hfa Inhaler] 2 puff INHALATION RT-Q4H PRN PRN Reason: Shortness Of Breath cloNIDine HCL [Catapres] 0.2 mg PO TID Ipratropium/Albuter 20-100Mcg [Combivent Respimat 20-100Mcg Inhaler] 1 puff INHALATION RT-BID PRN PRN Reason: Shortness Of Breath Discontinued Ipratropium-Albuterol Nebulize [Duoneb 0.5 mg-3 mg/3 ml Soln] 3 ml INHALATION RT-QID PRN PRN Reason: Shortness Of Breath Discharge Medication List Albuterol Inhaler [Ventolin Hfa Inhaler] 2 puff INHALATION RT-Q4H PRN 12/19/19 [History] Ipratropium/Albuter 20-100Mcg [Combivent Respimat 20-100Mcg Inhaler] 1 puff INHALATION RT-BID PRN 12/19/19 [History] Multivitamins, Thera [Multivitamin (formulary)] 1 tab PO DAILY 12/19/19 [History] Nicotine 21Mg/24Hr Patch [Habitrol] 1 patch TRANSDERM DAILY PRN 12/19/19 [History] cloNIDine HCL [Catapres] 0.2 mg PO TID 12/19/19 [History] diazePAM [Valium] 5 mg PO BID 2 Days tab 12/21/19 [Rx] lamoTRIgine [LaMICtal] 25 mg PO BID tab 12/21/19 [Rx] traZODone HCL [Desyrel] 50 mg PO HS PRN tab 12/21/19 [Rx] Sertraline [Zoloft] 100 mg PO DAILY #30 tab 12/26/19 [Rx] Follow up Appointment(s)/Referral(s): None,Stated [Primary Care Provider] - 1-2 days Patient Instructions/Handouts: Alcohol Intoxication (DC) Activity/Diet/Wound Care/Special Instructions: [facility] - phone: [phone]. Address: [address] [place] [address]. First appointment on 12/27/2019 at 8:30 a.m. Discharge Disposition: HOME SELF-CARE
[2019-12-27] MEDS ORDERED: SERTRALINE 100 MG TAB PO SCH (09:00)
== END 2019-12-26 16:21 | disposition home or self-care (01) | DRG 897 ==
LOC: EC 19:35 → 4SSUR 21:33 → OBSVTOIN 12-20 14:57 → UNDODISIN 12-22 18:11
PROVIDERS: ADMIT Internal Medicine; ATTEND Internal Medicine
DX: F10.229 Alcohol dependence with intoxication, unspecified (principal); F33.2 Major depressive disorder, recurrent severe without psychotic features; R45.851 Suicidal ideations; F10.239 Alcohol dependence with withdrawal, unspecified; F12.10 Cannabis abuse, uncomplicated; Y90.8 Blood alcohol level of 240 mg/100 ml or more; F17.210 Nicotine dependence, cigarettes, uncomplicated; F41.9 Anxiety disorder, unspecified; I10 Essential (primary) hypertension; J45.909 Unspecified asthma, uncomplicated; Z91.5 Personal history of self-harm; Z79.899 Other long term (current) drug therapy
CPT/HCPCS: 36415; 80048; 80306; 80320; 81003; 85025; 94640; 96361; 96374; 99285